=== PATIENT | male | born 1955 | race Caucasian/White ===

== ENCOUNTER → 2024-05-03 | Outpatient (CLI) | payer MEDICARE ==
[~2024-05-03] VITALS: Ht 177.8 cm; Wt 93.9 kg
[~2024-05-03] MED LIST: ATOR40TA PO; BIOT10004 PO; DICL100G58 TP; OMEP40CA8 PO; RIVA20TA PO; TEST200V3 IM; TRAM50TA PO
[2024-05-03] MEDS: MOVIPREP POWDER PACKET PO STA (10:51)
[2024-05-03 11:36] VITALS: BP 131/71; PULSE 74; RESP 18; TEMP 98.2; O2SAT 96
[2024-05-03 12:03] LABS: BASOPHIL # 0.1 10^3/uL (0.0-0.1); EOSINOPHIL # 0.3 10^3/uL (0.0-0.2); EOSINOPHIL % 5.3 % (0.0-5.0); HEMATOCRIT(ML) 43.9 % (37.0-53.0); HEMOGLOBIN 12.9 g/dL (13.9-16.3); LYMPHOCYTES # 1.25 10^3/uL1 (1.0-4.8); LYMPHOCYTES % 24.7 % (24.0-44.0); MEAN CORP HGB 23.7 pg (26-34); MEAN CORP HGB CONCENTRATION 29.4 g/dL (33-36.5); MEAN CORP VOLUME 80.6 fL (78-100); MONOCYTES # 0.7 10^3/uL (0.3-0.8); MONOCYTES % 13.6 % (5.0-12.0); NEUTROPHIL # 2.8 10^3/uL (1.8-7.7); NEUTROPHILS % 55.4 % (41.0-85.0); RED BLOOD CELL 5.45 10^6/uL (4.50-5.90); RED CELL DISTRIBUTION WIDTH 24.3 % (11.5-14.5); WHITE BLOOD CELL 5.1 10^3/uL (4.5-11.0)
[2024-05-03 12:19] LABS: +ADD MANUAL DIFF(NO CHRG) NO; PLATELET COUNT 187 10^3/uL (150-400)
[2024-05-03 12:31] LABS: ALBUMIN(ML) 3.7 g/dL (3.4-5.0); ALBUMIN/GLOBULIN RATIO 0.973; ANION GAP 12.9; BUN/CREATININE RATIO 7.5 (10.0-20.0); CALCIUM 9.1 mg/dL (8.4-10.5); CARBON DIOXIDE 26.4 mmol/L (20.0-32); CREATININE SERUM 1.2 mg/dL (0.59-1.40); EST GFR, NON-AA 59.9 (>/=60); POTASSIUM 4.3 mmol/L (3.6-5.2)
[2024-05-03 12:41] LABS: INR 1.3; PROTHROMBIN PROTIME 13.2 SEC (9.7-11.6)
[2024-05-03 20:39] LABS: HYPOCHROMIA 1+ (NEGATIVE); MICROCYTOSIS 1+ (NEGATIVE); OVALOCYTES 1+ (NEGATIVE)
== END | disposition home or self-care (01) ==
LOC: LAB 06-02 08:00 → EDSTATUS 06-05 05:00
PROVIDERS: ATTEND Surgery
DX: Z01.812 Encounter for preprocedural laboratory examination (principal); Z12.11 Encounter for screening for malignant neoplasm of colon; D50.9 Iron deficiency anemia, unspecified; I95.9 Hypotension, unspecified; R58 Hemorrhage, not elsewhere classified; Z79.01 Long term (current) use of anticoagulants; Z98.890 Other specified postprocedural states; Z79.899 Other long term (current) drug therapy
CPT/HCPCS: 36415; 80053; 85025; 85610; 85730

== ENCOUNTER → 2025-01-03 | Outpatient (CLI) | payer OTHER ==
[2025-01-03 10:40] LABS: BASOPHIL # 0.0 10^3/uL (0.0-0.1); BASOPHIL % 0.6 % (0.2-1.2); EOSINOPHIL # 0.3 10^3/uL (0.0-0.2); EOSINOPHIL % 5.5 % (0.0-5.0); HEMATOCRIT(ML) 45.5 % (37.0-53.0); IG % 0.00 % (0.00-0.50); LYMPHOCYTES # 1.14 10^3/uL1 (1.0-4.8); LYMPHOCYTES % 24.2 % (24.0-44.0); MEAN CORP HGB 31.2 pg (26-34); MEAN CORP HGB CONCENTRATION 32.7 g/dL (33-36.5); MEAN CORP VOLUME 95.4 fL (78-100); MONOCYTES # 0.6 10^3/uL (0.3-0.8); MONOCYTES % 11.9 % (5.0-12.0); NEUTROPHIL # 2.7 10^3/uL (1.8-7.7); NEUTROPHILS % 57.8 % (41.0-85.0); RED BLOOD CELL 4.77 10^6/uL (4.50-5.90); RED CELL DISTRIBUTION WIDTH 12.3 % (11.5-14.5); WHITE BLOOD CELL 4.7 10^3/uL (4.5-11.0)
[2025-01-03 11:00] LABS: ALANINE AMINOTRANSFERASE(ML) 43.0 U/L (12-78); ALBUMIN(ML) 3.7 g/dL (3.4-5.0); CREATININE SERUM 1.07 mg/dL (0.59-1.40); EST GFR, NON-AA 68.3 (>/=60); LDL/HDL RATIO 1.1
== END | disposition home or self-care (01) ==
LOC: LAB 01-01 15:21
PROVIDERS: ATTEND Nurse Practitioner Family
DX: E78.5 Hyperlipidemia, unspecified (principal); R79.89 Other specified abnormal findings of blood chemistry
CPT/HCPCS: 36415; 80053; 80061; 83036; 84402; 84403; 85025

== ENCOUNTER → 2025-04-02 | Outpatient (CLI) | payer MEDICARE | END | disposition home or self-care (01) | LOC: RAD 16:44 | PROVIDERS: ATTEND Nurse Practitioner Family | DX: M17.11 Unilateral primary osteoarthritis, right knee (principal); M11.261 Other chondrocalcinosis, right knee; M25.761 Osteophyte, right knee; M76.51 Patellar tendinitis, right knee; M25.561 Pain in right knee; M25.461 Effusion, right knee | CPT/HCPCS: 73560 ==

== ENCOUNTER → 2025-04-08 | Outpatient (CLI) | payer MEDICARE | END | disposition home or self-care (01) | LOC: RAD 14:40 | PROVIDERS: ATTEND Nurse Practitioner Family | DX: M25.561 Pain in right knee (principal); M79.604 Pain in right leg; Z95.820 Peripheral vascular angioplasty status with implants and grafts | CPT/HCPCS: 93971 ==